=== PATIENT | male | born 1955 | race Caucasian/White ===

== ENCOUNTER → 2021-12-01 | Outpatient (CLI) | payer OTHER ==
[~2021-12-01] MED LIST: AMIODARONE HCL100 MG PO; ANORO ELLIPTA1 EACH INH; ASPIRIN EC81 MG PO; ATORVASTATIN CA40 MG PO; BUMETANIDE2 MG PO; CLEOCIN HCL300 MG PO; COREG6.25 MG PO; DIGOXIN125 MCG PO; ELIQUIS5 MG PO; ENTRESTO 24 MG1 EACH PO; FARXIGA10 MG PO; HUMALOG100 UNIT/1 SC; HYDROCODON-ACE1 EAC4 PO; IPRAT-ALBUT 0.5-3 ML INH; LEVOFLOXACIN500 MG PO; PROAIR HFA8.5 GM INH; SPIRONOLACTONE25 MG PO; VITAMIN D325 MC6 PO
[2021-12-01 12:21] LABS: HEMOGLOBIN 16.7 gm/dl (14.0-17.5); RED BLOOD COUNT 4.74 M/UL (4.20-5.50); WHITE BLOOD COUNT 10.9 K/UL (4.5-11.0)
[2021-12-01 12:54] LABS: BUN/CREATININE RATIO 21 (0-10)
== END ==
LOC: ECHO 08:30
PROVIDERS: Internal Medicine Cardiovascular Disease
DX: I50.42 Chronic combined systolic (congestive) and diastolic (congestive) heart failure (principal); I25.5 Ischemic cardiomyopathy; I44.7 Left bundle-branch block, unspecified; I48.0 Paroxysmal atrial fibrillation; I27.20 Pulmonary hypertension, unspecified; Z95.0 Presence of cardiac pacemaker; Z20.822 Contact with and (suspected) exposure to COVID-19
CPT/HCPCS: ECHO; 36415; 71046; 80048; 85025; 93306; U0003

== ENCOUNTER 2021-12-03 09:07 | Outpatient (CLI) | payer OTHER ==
[~2021-12-03] VITALS: Ht 182.9 cm; Wt 129.3 kg
[2021-12-03] MEDS ORDERED: AMIODARONE HCL100 MG PO (09:51)
[2021-12-03] MEDS ORDERED: ANORO ELLIPTA1 EACH INH (09:52)
[2021-12-03] MEDS ORDERED: ASPIRIN EC81 MG PO (09:52)
[2021-12-03] MEDS ORDERED: ATORVASTATIN CA40 MG PO (09:53)
[2021-12-03] MEDS ORDERED: IPRAT-ALBUT 0.5-3 ML INH (09:55)
[2021-12-03] MEDS ORDERED: BUMETANIDE2 MG PO (09:56)
[2021-12-03] MEDS ORDERED: COREG6.25 MG PO (09:57)
[2021-12-03] MEDS ORDERED: ELIQUIS5 MG PO (09:57)
[2021-12-03] MEDS ORDERED: DIGOXIN125 MCG PO (09:57)
[2021-12-03] MEDS ORDERED: FARXIGA10 MG PO (09:58)
[2021-12-03] MEDS ORDERED: ENTRESTO 24 MG1 EACH PO (09:58)
[2021-12-03] MEDS ORDERED: SPIRONOLACTONE25 MG PO (10:00)
[2021-12-03] MEDS ORDERED: HUMALOG100 UNIT/1 SC (10:00)
[2021-12-03] MEDS ORDERED: PROAIR HFA8.5 GM INH (10:03)
[2021-12-03] MEDS ORDERED: VITAMIN D325 MC6 PO (10:04)
[2021-12-03] MEDS ORDERED: CLEOCIN HCL300 MG PO (14:51)
[2021-12-03] MEDS ORDERED: HYDROCODON-ACE1 EAC4 PO (14:51)
[2021-12-03] MEDS ORDERED: LEVOFLOXACIN500 MG PO (14:51)
[2021-12-04] MEDS ORDERED: ENTRESTO 24 MG1 EACH PO (08:54)
== END 2021-12-04 10:51 | disposition home or self-care (01) ==
LOC: CATH 09:07 → PROG CARE 17:59 → CATH 12-04 10:51
DX: Z45.02 Encounter for adjustment and management of automatic implantable cardiac defibrillator (principal); I11.0 Hypertensive heart disease with heart failure; I50.42 Chronic combined systolic (congestive) and diastolic (congestive) heart failure; I25.5 Ischemic cardiomyopathy; I25.10 Atherosclerotic heart disease of native coronary artery without angina pectoris; I48.0 Paroxysmal atrial fibrillation; E11.9 Type 2 diabetes mellitus without complications; E78.5 Hyperlipidemia, unspecified; I44.7 Left bundle-branch block, unspecified; I25.2 Old myocardial infarction; F17.210 Nicotine dependence, cigarettes, uncomplicated; J44.9 Chronic obstructive pulmonary disease, unspecified; Z88.8 Allergy status to other drugs, medicaments and biological substances; Z79.01 Long term (current) use of anticoagulants; Z79.4 Long term (current) use of insulin; Z79.899 Other long term (current) drug therapy
CPT/HCPCS: 33225; 71045; 82962; 93005; 93641; 94664; 94760; 99152; 99153; C1769; C1882; C1900; J1644; J2250; J3010; J3370; J7040; J7050; J7070; Q9965